=== PATIENT | female | born 1990 | race African-American/Black ===

== ENCOUNTER 2018-05-29 16:22 | Emergency (ER) | payer SELFPAY ==
[~2018-05-29] VITALS: Ht 162.6 cm; Wt 68.0 kg
[~2018-05-29 16:22] MED LIST: CYCLOBENZAPRINE10 MG ORAL; IBUPROFEN600 MG ORAL; NKM; NORCO 5-325 TA1 EACH ORAL; VICODIN 5-5001 EACH PO
[2018-05-29 16:38] VITALS: BP 129/85
[2018-05-29] MEDS ORDERED: Dexamethasone 4mg/ml vial IM ONE (17:00)
[2018-05-29] MEDS ORDERED: Norco 5mg/325mg tab ORAL ONE (17:00)
[2018-05-29] MEDS ORDERED: Lidocaine 2% Visc 15ml soln ORAL ONE (17:00)
[2018-05-29] MEDS ORDERED: Ketorolac 60mg Inj IM ONE (17:00)
--- NOTE | 2018-05-29 17:21 | Emergency Room Report ---
History of Present Illness General Chief Complaint: Sore Throat Source: Patient Present Illness HPI 27-year-old female presents to the emergency department complaining of 9 out of 10 in severity right-sided sore throat 2 days. She reports progressive onset of her symptoms she also reports some chills and subjective fevers. Patient states that she had URI approximately one week ago which did resolve. Patient reports that her pain is exacerbated upon swallowing. Denies recent oral/ dental procedures. Denies earache, neck pain/stiffness, nasal congestion or cough. She reports that she has been taking TheraFlu. pt. reports pain and swelling became problematic this am. Denies wheezing, reports changes to her voice. Allergies: Coded Allergies: No Known Allergies (Unverified , 01/06/13) Patient History Past Medical History: see triage record Past Surgical History: none Pertinent Family History: none Last Menstrual Period: 05/19/18 Now: No Immunizations: UTD Reviewed Nursing Documentation: PMH: Agreed; PSxH: Agreed Nursing Documentation-PMH Past Medical History: No Stated History Review of Systems All Other Systems: negative except mentioned in HPI Physical Exam Vital Signs Date Time Temp Pulse Resp B/P (MAP) Pulse Ox O2 Delivery O2 Flow Rate FiO2 05/29/18 16:24 99.9 117 20 129/85 97 Room Air 99.9 Sp02 EP Interpretation: reviewed, normal General Appearance: alert, GCS 15, non-toxic, moderate distress Head: normocephalic, atraumatic Eyes: bilateral eye normal inspection, bilateral eye PERRL ENT: hearing grossly normal, TMs + canals normal, uvula midline, tonsillar swelling - soft palate fullness, other - Fullness noted to the right peritonsillar area/soft palate. Right peritonsillar cellulitis, no uvular deviation, no exudates + voice change Neck: full range of motion, no meningismus, no bony tend Respiratory: lungs clear, normal breath sounds, speaking full sentences Cardiovascular #1: tachycardia Musculoskeletal: back normal, gait/station normal, normal range of motion, non- tender Neurologic: alert, oriented x3, responsive, motor strength/tone normal, sensory intact, normal gait, speech normal, grossly normal Psychiatric: judgement/insight normal Skin: normal color, no rash, warm/dry, well hydrated Lymphatic: no adenopathy Medical Decision Making PA Attestation Dr. Moses is my supervising Physician whom patient management has been discussed with. Diagnostic Impression: Primary Impression: Peritonsillar abscess Additional Impression: Acute epiglottiditis Qualified Codes: J05.10 - Acute epiglottitis without obstruction ER Course 27-year-old female presents to the emergency department complaining of 9 out of 10 in severity right-sided sore throat 2 days. She reports progressive onset of her symptoms she also reports some chills and subjective fevers. Patient states that she had URI approximately one week ago which did resolve. Patient reports that her pain is exacerbated upon swallowing. Denies recent oral/ dental procedures. Denies earache, neck pain/stiffness, nasal congestion or cough. She reports that she has been taking TheraFlu. pt. reports pain and swelling became problematic this am. Denies wheezing, reports changes to her voice. Ddx considered but are not limited to: pharyngitis, strep, [employer], ludwigs angina, retropharyngeal abscess, URI just to name a few. Vital signs: Pt is TACHYCARDIC, remaining are WNL, pt. is afebrile H&PE are most consistent with: Fullness noted to the right peritonsillar area/ soft palate. Right peritonsillar cellulitis, no uvular deviation, no exudates noted. voice change is noted. ORDERS: - lateral neck soft tissue x-ray: borderline epiglottitis per radiology. ED INTERVENTIONS: - Decadron 8mg IM -Toradol IM -Lidocaine viscous PO - Brewster PO - 1.5g IV Unasyn --- D/w pt. admission, she does not want to be admitted for obs at this time. D /w pt. that I will d/c her with rx's for abx and pain meds but needs to have a 24 hour follow up. stressed to patient the importance of returning promptly to the ED with worsening or new symptoms. Pt. verbalized her understanding and agreement with this treatment plan. DISCHARGE: At this time pt. is stable for d/c to home. Will provide printed patient care instructions, and any necessary prescriptions. Care plan and follow up instructions have been discussed with the patient prior to discharge. Other X-Ray Diagnostic Results Other X-Ray Diagnostic Results : X-Ray ordered: Lateral Neck Soft Tissue # of Views/Limited Vs Complete: 2 View Indication: Pain EP Interpretation: Yes PA Xray: Interpretation reviewed, by supervising MD, and agrees with findings. Interpretation: no dislocation, no fractures, other - borderline epiglottitis per radiolog Impression: Other - Abnormal Electronically Signed by: Luciana Lam PA-C Last Vital Signs Date Time Temp Pulse Resp B/P (MAP) Pulse Ox O2 Delivery O2 Flow Rate FiO2 05/29/18 16:38 99.9 67 20 129/85 97 Room Air 99.9 Disposition: HOME, SELF-CARE Condition: Stable Scripts Amoxicillin/Potassium Clav 875-125* (AUGMENTIN 875-125 TABLET*) 1 Each Tablet 1 TAB ORAL TWICE A DAY for 10 Days, #20 TAB Prov: Luciana Lam 05/29/18 Ibuprofen* (MOTRIN*) 600 Mg Tablet 600 MG ORAL THREE TIMES A DAY, #30 TAB 0 Refills Prov: Luciana Lam 05/29/18 Hydrocodone Bit/Acetaminophen 5-325* (NORCO 5-325*) 1 Each Tablet 1 TAB ORAL Q6H PRN for For Pain, #12 TAB 0 Refills Prov: Luciana Lam 05/29/18 Patient Instructions: Epiglottitis, Pediatric, [id number], Peritonsillar Abscess Additional Instructions: Take medications as directed. -Follow up in 24 hours Follow up with a Primary Care Provider in 3-5 days, even if your symptoms have resolved. --Please review list of primary care clinics, if you do not already have a primary care provider Return sooner to ED if new symptoms occur, or current symptoms become worse. Do not drink alcohol, drive, or operate heavy machinery while taking Brewster as this may cause drowsiness. - Please note that this Emergency Department Report was dictated using [employer] physical technology software, occasionally this can lead to erroneous entry secondary to interpretation by the dictation equipment. Luciana Lam May 29, 2018 17:21
[2018-05-29] MEDS ORDERED: Ampicillin/Sulbactam Sod 1.5 GM in NS 55 ML IVPB ONE (18:00)
[2018-05-29] MEDS ORDERED: AUGMENTIN 875-1 EAC1 ORAL (18:59)
[2018-05-29] MEDS ORDERED: NORCO 5-325 TA1 EACH ORAL (18:59)
[2018-05-29] MEDS ORDERED: IBUPROFEN600 MG ORAL (18:59)
[2018-05-29 19:27] VITALS: BP 129/85
--- NOTE | 2018-05-30 08:11 | Diagnostic Imaging Report ---
Indication: Neck pain, sore throat for 2 days Technique: 2 views of the neck with soft tissue technique Comparison: none Findings: No prevertebral soft tissue swelling. There is some thickening of the hard palate there is borderline prominence of the epiglottis. No definite hypopharyngeal distention or glottic narrowing. Impression: Borderline epiglottic prominence, of doubtful significance early epiglottitis not completely excludable Otherwise unremarkable. This agrees with the preliminary interpretation provided overnight by [facility]iology service.
== END 2018-05-29 19:28 | disposition home or self-care (01) ==
LOC: EMR 17:47
DX: J36 Peritonsillar abscess (principal); J05.10 Acute epiglottitis without obstruction
CPT/HCPCS: 70360; 96365; 96372; 99284; J0295; J1100